=== PATIENT | male | born 1980 | race Caucasian/White ===

== ENCOUNTER 2020-07-24 08:43 | Emergency (ER) | payer SELFPAY ==
[~2020-07-24 08:43] MED LIST: BENTYL 20MG TAB20 MG PO; LODINE CAP 300300 MG PO; VENLAFAXINE HC100 MG PO; ZOFRAN ODT 4 MG4 MG PO
[2020-07-24] MEDS ORDERED: IBUPROFEN600 MG PO (10:42)
[2020-07-24] MEDS ORDERED: FLEXERIL PO (10:42)
== END 2020-07-24 11:07 | disposition home or self-care (01) ==
LOC: ER1 08:43
DX: S46.911A Strain of unspecified muscle, fascia and tendon at shoulder and upper arm level, right arm, initial encounter (principal); F17.210 Nicotine dependence, cigarettes, uncomplicated; X50.0XXA Overexertion from strenuous movement or load, initial encounter
CPT/HCPCS: 73030; 99283; J1885

== ENCOUNTER → 2020-08-03 | Outpatient (CLI) | payer BC, OTHER ==
[~2020-08-03] MED LIST changes: +FLEXERIL PO; +IBUPROFEN600 MG PO
== END ==
LOC: EMI 08:00
DX: S46.911D Strain of unspecified muscle, fascia and tendon at shoulder and upper arm level, right arm, subsequent encounter (principal); M85.611 Other cyst of bone, right shoulder
CPT/HCPCS: 73221